=== PATIENT | male | born 1990 | race Caucasian/White ===

== ENCOUNTER 2023-02-28 20:23 | Emergency (ER) | payer OTHER ==
[~2023-02-28] VITALS: Ht 170.2 cm; Wt 75.7 kg
[2023-02-28 20:36] VITALS: BP 120/72
[2023-02-28 20:50] VITALS: BP 120/72
--- NOTE | 2023-02-28 22:22 | NUR ---
PT TAKEN TO BED 7
--- NOTE | 2023-02-28 22:25 | NUR ---
Dr. Lemus examining patient.
--- NOTE | 2023-02-28 22:30 | NUR ---
32 Y/O M presents with bilateral groin intermittent pain with pressure 8/10 x2 weeks. pt stated he has had some nausea but no VD. pt stated he was lifting boxes at work and could have injured himself. pt A&Ox4, skin intact, respirations even and unlabored. PMH- pt denies NKA
--- NOTE | 2023-02-28 22:47 | NUR ---
CHAPERONED IN EXAMINATING PATIENT.
--- NOTE | 2023-02-28 22:54 | NUR ---
PT TAKEN TO CT
--- NOTE | 2023-02-28 23:03 | NUR ---
PT RETURN FROM CT
[2023-02-28] MEDS: KETOROLAC 30 MG/ML VIAL IM ONE (23:31)
--- NOTE | 2023-02-28 23:47 | NUR ---
URINE WALKED TO LAB.
[2023-02-28 23:50] LABS: APPEARANCE,URINE CLEAR (CLEAR); BILIRUBIN,URINE NEGATIVE (NEGATIVE); BLOOD, URINE NEGATIVE (NEGATIVE); COLOR,URINE YELLOW (YELLOW); LEUKOCYTE ESTERASE ,URINE NEGATIVE (NEGATIVE); NITRITE, URINE NEGATIVE (NEGATIVE); UGLUCOSE TRACE (NEGATIVE)
[2023-03-01] MEDS ORDERED: NAPR-54 PO (01:22)
[2023-03-01] MEDS ORDERED: METR-435 PO (01:22)
--- NOTE | 2023-03-01 01:30 | NUR ---
Patient discharged with v/s stable. Written and verbal after care instructions given and explained. Patient alert, oriented and verbalized understanding of instructions. Ambulatory with steady gait. All questions addressed prior to discharge. ID band removed. Patient advised to follow up with PMD. Rx of FLAGYL AND NAPROSYN given. Patient educated on indication of medication including possible reaction and side effects. Opportunity to ask questions provided and answered.
== END 2023-03-01 01:30 | disposition home or self-care (01) ==
LOC: MED 20:23
DX: R10.31 Right lower quadrant pain (principal); Z79.2 Long term (current) use of antibiotics; Z79.1 Long term (current) use of non-steroidal anti-inflammatories (NSAID)
CPT/HCPCS: 74176; 81003; 96372; 99285; J1885; 99284